=== PATIENT | female | born 1960 ===

== ENCOUNTER 2016-09-11 08:48 | Day surgery (SDC) | payer MEDICAID ==
[2016-09-11 09:19] VITALS: BMI 31.9
[2016-09-11] MEDS ORDERED: Midazolam 2 MG/2 ML VIAL ONE (10:18)
[2016-09-11] MEDS ORDERED: Propofol 10 mg/ml Inj (20 ML) ONE (10:18)
[2016-09-11 10:28] VITALS: O2SAT 100
[2016-09-11] MEDS ORDERED: Lactated Ringer's 1,000 ML IV SCH (10:45)
[2016-09-11 10:58] VITALS: TEMP 98
[2016-09-11 11:46] VITALS: RESP 19
[2016-09-11 11:47] VITALS: BP 126/63; PULSE 57
== END 2016-09-11 11:38 | disposition home or self-care (01) ==
LOC: C.ENDO 08:48
PROVIDERS: ATTEND Internal Medicine Gastroenterology
DX: Z12.11 Encounter for screening for malignant neoplasm of colon (principal); K64.1 Second degree hemorrhoids
CPT/HCPCS: 45378; 82948; J2250; J2704; J7120